=== PATIENT | male | born 1955 | race American Indian/Alaskan Native ===

== ENCOUNTER 2022-06-28 11:06 | Emergency (ER) | payer BC ==
[2022-06-28 11:24] VITALS: BP 152/80
== END 2022-06-28 16:20 | disposition left against medical advice (07) ==
LOC: ED 11:06
DX: R53.81 Other malaise (principal); R53.1 Weakness; Z53.21 Procedure and treatment not carried out due to patient leaving prior to being seen by health care provider

== ENCOUNTER 2022-06-28 15:44 | Emergency (ER) | payer BC ==
--- NOTE | 2022-06-28 16:45 | Emergency Department Report ---
HPI - General Chief Complaint: Urogenital-Male Time Seen by Provider: 06/28/22 16:07 - HPI HPI: Room 22 The patient is six 6-year-old male presenting with chief complaint of dysuria the patient states yesterday he noticed urinary frequency needing to urinate every 2-3 hours. Patient states last night at 2300 he had dysuria. Patient states when he awakened this morning he again had dysuria prompting him to go to his primary physician's office. Per EMS the patient was noted to be lethargic at the primary physician's office so EMS was called. EMS states upon their arrival the patient was found to be afebrile with a normal heart rate and normal blood pressure. EMS reports the patient was ANO x4 and in no acute distress. In the ED when asked how he is feeling patient replies "I'm fine." ED Past Medical Hx - Past Medical History Hx Hypertension: Yes Hx CVA: Yes Hx Heart Attack/AMI: Yes Hx Diabetes: Yes - Surgical History Past Surgical History?: No - Family History Family history: no significant - Social History Smoking Status: Never Smoker Substance Use Type: None (Denies illicit drug use) - Medications Home Medications: Home Medications Medication Instructions Recorded Confirmed Last Taken Type Fluconazole (Nf) [Diflucan TAB] 150 mg PO ONCE #1 tablet 06/28/22 Unknown Rx Phenazopyridine [Pyridium] 200 mg PO TID #6 tab 06/28/22 Unknown Rx levoFLOXacin [Levaquin TAB] 500 mg PO QDAY #10 tablet 06/28/22 Unknown Rx ED Review of Systems ROS: Stated complaint: POSSIBLE UTI/SEEN HERE YESTERDAY Other details as noted in HPI Constitutional: no symptoms reported Eyes: denies: eye pain ENT: denies: throat pain Respiratory: no symptoms reported Cardiovascular: denies: chest pain Endocrine: no symptoms reported Gastrointestinal: denies: abdominal pain Genitourinary: dysuria Musculoskeletal: denies: back pain Neurological: denies: headache Physical Exam - Physical Exam Vital Signs: Vital Signs 06/28/22 15:44 Temperature 65.1 F L Pulse Rate 88 Respiratory 18 Rate Blood Pressure 102/60 [Left] O2 Sat by Pulse 99 Oximetry Physical Exam: GENERAL: The patient is well-developed well-nourished male lying on stretcher not appearing to be in acute distress. [] HEENT: Normocephalic. Atraumatic. Extraocular motions are intact. Patient has moist mucous membranes. NECK: Supple. Trachea midline CHEST/LUNGS: Clear to auscultation. There is no respiratory distress noted. HEART/CARDIOVASCULAR: Regular. There is no tachycardia. There is no gallop rub or murmur. ABDOMEN: Abdomen is soft, nontender. Patient has normal bowel sounds. There is no abdominal distention. SKIN: There is no rash. There is no edema. There is no diaphoresis. NEURO: The patient is awake, alert, and oriented. The patient is cooperative. The patient has no focal neurologic deficits. The patient has normal speech. GCS 15 MUSCULOSKELETAL: There is no evidence of acute injury. ED Course Vital Signs 06/28/22 15:44 Temperature 65.1 F L Pulse Rate 88 Respiratory 18 Rate Blood Pressure 102/60 [Left] O2 Sat by Pulse 99 Oximetry ED Medical Decision Making - Lab Data Result diagrams: 06/28/22 17:43 06/28/22 17:43 Laboratory Tests 06/28/22 06/28/22 06/28/22 17:43 17:43 17:43 WBC 12.9 H RBC 3.84 Hgb 11.6 L Hct 35.5 MCV 92 MCH 30 MCHC 33 RDW 15.4 H Plt Count 176 Lymph % (Auto) 5.3 L [place] % (Auto) 5.7 Eos % (Auto) 0.0 Baso % (Auto) 0.1 Lymph # (Auto) 0.7 L [place] # (Auto) 0.7 Eos # (Auto) 0.0 Baso # (Auto) 0.0 Seg Neutrophils % 88.9 H Seg Neutrophils # 11.4 H VBG pH 7.361 Sodium 136 L Potassium 4.5 Chloride 101.4 Carbon Dioxide 24 Anion Gap 15 BUN 33 H Creatinine 2.6 H Estimated GFR 30 BUN/Creatinine Ratio 13 Glucose 229 H Calcium 8.9 Urine Color Urine Turbidity Specific [place] (Man) Ur Protein (Man) Ur Ketones (Man) Ur Nitrite (Man) Ur Reducing Substances Urine Ictotest Leukocyte Esterase (Man) Urine WBC (Auto) Urine RBC (Auto) U Epithel Cells (Auto) Urine Bacteria (Auto) Urine RBC (Manual) Urine WBC Clumps Urine Mucus Urine Yeast (Budding) 06/28/22 Unknown WBC RBC Hgb Hct MCV MCH MCHC RDW Plt Count Lymph % (Auto) [place] % (Auto) Eos % (Auto) Baso % (Auto) Lymph # (Auto) [place] # (Auto) Eos # (Auto) Baso # (Auto) Seg Neutrophils % Seg Neutrophils # VBG pH Sodium Potassium Chloride Carbon Dioxide Anion Gap BUN Creatinine Estimated GFR BUN/Creatinine Ratio Glucose Calcium Urine Color Brown Urine Turbidity Turbid Specific [place] (Man) 1.020 Ur Protein (Man) 2+ Ur Ketones (Man) Negative Ur Nitrite (Man) Positive Ur Reducing Substances Not Reportable Urine Ictotest Not Reportable Leukocyte Esterase (Man) Small Urine WBC (Auto) > 182.0 H Urine RBC (Auto) 166.0 U Epithel Cells (Auto) 4.0 Urine Bacteria (Auto) 3+ Urine RBC (Manual) 2+ Urine WBC Clumps 3+ Urine Mucus 3+ Urine Yeast (Budding) 2+ - Differential Diagnosis UTI, Critical care attestation.: If time is entered above; I have spent that time in minutes in the direct care of this critically ill patient, excluding procedure time. ED Disposition Clinical Impression: UTI (urinary tract infection) Disposition: 01 HOME / SELF CARE / HOMELESS Is pt being admited?: No Does the pt Need Aspirin: No Condition: Stable Instructions: Urinary Tract Infection, Adult Additional Instructions: Return to the emergency department should you develop worsening symptoms, inability to tolerate food or liquids, high fever or any other concerns Prescriptions: Fluconazole (Nf) [Diflucan TAB] 150 mg PO ONCE #1 tablet levoFLOXacin [Levaquin TAB] 500 mg PO QDAY #10 tablet Phenazopyridine [Pyridium] 200 mg PO TID #6 tab Referrals: BARRY FRAZIER MD [Primary Care Provider] - 3-5 Days ADOLFO BALLESTEROS MD [Staff Physician] - 3-5 Days (Dr. Ballesteros is a urologist. Please follow-up with him with your own urologist for further evaluation) Time of Disposition: 20:52
[2022-06-28 18:29] LABS: Calcium 8.9 mg/dL (8.4-10.2)
[2022-06-28 19:09] LABS: Basophils % (Auto) 0.1 % (0.0-1.8); Hematocrit 35.5 % (35.5-45.6); Hemoglobin 11.6 gm/dl (11.8-15.2); Lymphocytes # (Auto) 0.7 K/mm3 (1.2-5.4); Lymphocytes % (Auto) 5.3 % (13.4-35.0); Mean Corpuscular HGB Conc 33 % (32-34); Mean Corpuscular Volume 92 fl (84-94); Monocytes # (Auto) 0.7 K/mm3 (0.0-0.8); Monocytes % (Auto) 5.7 % (0.0-7.3); Platelet Count 176 K/mm3 (140-440); Red Blood Count 3.84 M/mm3 (3.65-5.03); Red Cell Distribution Width 15.4 % (13.2-15.2)
[2022-06-28 19:35] LABS: Bacteria,Urine 3+ /HPF (Negative); Mucus,Urine 3+ /HPF
[2022-06-28 19:36] LABS: Color,Urine Brown (Yellow); WBC,Urine > 182.0 /HPF (0.0-6.0)
[2022-06-28] MEDS ORDERED: levoFLOXacin 500 MG TAB PO ONE (19:37)
[2022-06-28] MEDS ORDERED: ACETAMINOPHEN 500 MG TAB PO ONE (20:41)
[2022-06-28 23:24] VITALS: BP 155/70
== END 2022-06-28 22:00 | disposition home or self-care (01) ==
LOC: ED 15:44
DX: N39.0 Urinary tract infection, site not specified (principal); I10 Essential (primary) hypertension; E11.9 Type 2 diabetes mellitus without complications
CPT/HCPCS: 36415; 80048; 81001; 82805; 85025; 99284